=== PATIENT | female | born 2000 | race African-American/Black ===

== ENCOUNTER 2020-12-20 20:22 | Observation (INO) | payer OTHER, SELFPAY ==
[2020-12-20 21:20] LABS: Add Urine Microscopic? YES; Appearance Urine Cloudy (Clear); Bacteria Urine Trace /hpf; Bilirubin Urine Negative (Negative); Blood Urine Negative (Negative); Color Urine Yellow (Yellow); Glucose Urine UA 3+ mg/dL (Negative); Ketones Urine Negative (Negative); Leukocyte Esterase Ur 3+ LEU/UL (Negative); Nitrate Urine Negative (Negative); Protein Urine Negative (Negative); Specific Grav Ur 1.009 (1.001-1.035); Squamous Epithelial Cell Urine Rare /hpf (Few); Urobilinogen Urine Negative mg/dL (<2.0)
--- NOTE | 2020-12-20 21:33 | PC.NURSE ---
Spoke with Dr. Shook at 2130 to update patient status and give urine lab results along with contraction and fht's. Informed Dr. Shook of 3+ leukocyte and 3+ glucose in urine. Dr. Shook stated that since patient is not prasanth and baby has moderate variability on monitor she is okay for discharge from his standpoint. Dr. Shook stated that she needs to rest as much as possible and possibly get a belt for support to help with the pelvic pressure.
--- NOTE | 2020-12-21 08:36 | P.PNOB_ITS ---
OB - Triage/Final Diagnosis Visit Information Comments/Additional reasons for admission: I have assessed the risk for this patient, Veronika Dailey, and determined that she would benefit from observation care. Evaluation Laboratory results: Laboratory Tests 12/20/20 21:04 Urine Color Yellow Urine Appearance Cloudy H Urine pH 7.0 Ur Specific [place] 1.009 Urine Protein Negative Urine Glucose (UA) 3+ H Urine Ketones Negative Ur Blood (Man) Negative Urine Nitrate Negative Urine Bilirubin Negative Urine Urobilinogen Negative Leukocyte Esterase Rfl 3+ H Ur Squamous Epith Cells Rare Urine Bacteria Trace Final Diagnosis (1) Back pain affecting : Code(s): O99.891 - Other specified diseases and conditions complicating ; M54.9 - Dorsalgia, unspecified Status: Acute
== END 2020-12-20 21:50 | disposition home or self-care (01) ==
PROVIDERS: Admitting Provider Obstetrics & Gynecology; Visit Provider Obstetrics & Gynecology
DX: O99.891 Other specified diseases and conditions complicating pregnancy (principal); M54.9 Dorsalgia, unspecified; Z3A.00 Weeks of gestation of pregnancy not specified
CPT/HCPCS: 81001; G0378; G0379

== ENCOUNTER 2021-02-03 15:43 | Inpatient (IN) | payer OTHER, SELFPAY ==
[2021-02-03] VITALS (8 sets, daily range): BP systolic 112–129; BP diastolic 58–81; PULSE 89–104; TEMP 36.6–36.7
--- NOTE | 2021-02-03 16:30 | LDADM ---
This patient, Veronika Dailey, was admitted to Labor/Delivery/Recovery 108 on 02/03/21 at 15:43. Plans for labor, pain management and were discussed with patient. Patient/family oriented to hospital policies and general routines including ID bracelet, bed and alarms, visiting hours, pain management, procedures, bathroom and other care routines, personal items, smoking policy, room service/diet and guest tray routines, security routines, and visiting hours. Patient/Family are encouraged to report perceived risks to care and to ask questions if they do not understand what they are told or what they should do. See OBIX for further documentation.
[2021-02-03 16:33] LABS: Basophils Percent Auto 0.2 % (0.2-1.2); Eosinophils Absolute Auto 0.1 K/mm3 (0-0.3); Eosinophils Percent Auto 0.6 % (0-4.4); Hematocrit 35.9 % (37.0-47.0); Hemoglobin 11.7 g/dL (12.0-15.0); Immature Granulocyte Absolute 0.03 K/mm3 (0.00-0.031); Immature Granulocyte Percent A 0.3 % (0-0.5); Lymphocytes Absolute Auto 1.45 K/mm3 (0.9-3.2); Lymphocytes Percent Auto 16.4 % (18.3-44.2); Mean Corpuscular HGB Conc 32.6 g/dl (32-36); Mean Corpuscular Volume 82.9 fl (80-100); Monocytes Absolute Auto 0.8 K/mm3 (0.1-0.6); Monocytes Percent Auto 8.5 % (2.6-8.5); Neutrophils Absolute Auto 6.6 K/mm3 (1.3-6.7); Platelet Count Result 131 k/mm3 (150-375); Red Blood Count 4.33 M/mm3 (4.2-5.4); Red Cell Distribution Width 18.1 % (11.5-14.5); White Blood Count 8.9 K/mm3 (4.5-10.0)
[2021-02-03] MEDS: DINOPROSTONE 10 MG VAG INSERT VAGINAL (17:02)
--- NOTE | 2021-02-03 17:18 | P.PNAN_ITS ---
Anes - Eval Pre Procedure Procedure: labor epidural Date/Time: 02/03/21 17:18 Surgeon: camila Pre Op Diagnosis: iol Patient Data Age: 20 Gender: F Height: 1.68 m Weight: Last Vital Signs Pulse 89 02/03/21 17:00 BP 129/76 02/03/21 17:00 Allergies Allergy/AdvReac Type Severity Reaction Status Date / Time No Known Allergies Allergy Verified 01/13/21 14:37 Home Medications Medication Instructions Recorded Confirmed Type cholecalciferol (vitamin D3) 125 mcg PO DAILY 01/13/21 01/13/21 History [Vitamin D3] ferrous sulfate 325 mg PO DAILY 01/13/21 01/13/21 History prenat.vits,lillian,cyj-iyqf-kpfpk 1 tablet PO DAILY 01/13/21 01/13/21 History [ #2] Laboratory Tests 02/03/21 02/03/21 16:21 16:21 WBC 8.9 K/mm3 K/mm3 (4.5-10.0) RBC 4.33 M/mm3 M/mm3 (4.2-5.4) Hgb 11.7 g/dL L g/dL (12.0-15.0) Hct 35.9 % L % (37.0-47.0) MCV 82.9 fl fl (80-100) MCH 27.0 pg pg (26-34) MCHC 32.6 g/dl g/dl (32-36) RDW 18.1 % H % (11.5-14.5) Plt Count 131 k/mm3 L k/mm3 (150-375) MPV TNP Immature Gran % (Auto) 0.3 % % (0-0.5) Neut % (Auto) 74.0 % H % (45.5-73.1) Lymph % (Auto) 16.4 % L % (18.3-44.2) Rowan % (Auto) 8.5 % % (2.6-8.5) Eos % (Auto) 0.6 % % (0-4.4) Baso % (Auto) 0.2 % % (0.2-1.2) Lymph # (Auto) 1.45 K/mm3 K/mm3 (0.9-3.2) Rowan # (Auto) 0.8 K/mm3 H K/mm3 (0.1-0.6) Eos # (Auto) 0.1 K/mm3 K/mm3 (0-0.3) Baso # (Auto) 0.0 K/mm3 K/mm3 (0.0-0.1) Abs Immat Gran (auto) 0.03 K/mm3 K/mm3 (0.00-0.031) Absolute Neuts (auto) 6.6 K/mm3 K/mm3 (1.3-6.7) Absolute Nucleated RBC 0.0 K/mm3 K/mm3 (0.0-0.012) Nucleated RBC % 0.0 % % (0.0-0.2) % Immature Plt Fraction 15.0 % H % (0.9-11.2) RPR Pending Patient hx anesthesia problems: none Family hx anesthesia problems: none Results Review: All pre-operative results and documents have been reviewed as part of the pre-operative evaluation. [facility] Family History Family History (Updated 01/13/21 @ 14:40 by Linda Soriano RN) Mother Diabetes mellitus Hypertension Grandparent Hypertension Social History Social History Smoking status: Never smoker Substance use: never Spiritual care concerns: No Exam Day of Procedure 02/03/21 17:18
--- NOTE | 2021-02-03 18:21 | PM.IMHP ---
H&P: HPI History of Present Illness Date/Time: 02/03/21 18:13 Veronika is a 20yo @ 39.0wks (HERMINIO 02/10/21) who presents for elective IOL. She reports good movement. Irregular contractions. No VB or LOF. Her is complicated by: - Benign gestational thrombocytopenia (plts 117 --> 145k) - Mild anemia; on iron daily - Late transfer of care from [place] @ 31wks Chief Complaint: induction of labor Review of Systems Review of Systems: All systems reviewed & are unremarkable except as noted in HPI and below (HPI) PENDING SALE TO [facility] Family History Family History Mother Diabetes mellitus Hypertension Grandparent Hypertension Social History Social History Smoking status: Never smoker Substance use: never Spiritual care concerns: No Meds Home Medications and Allergies Home Medications Medication Instructions Recorded Confirmed Type cholecalciferol (vitamin D3) 125 mcg PO DAILY 01/13/21 01/13/21 History [Vitamin D3] ferrous sulfate 325 mg PO DAILY 01/13/21 01/13/21 History prenat.vits,lillian,ngh-xsdo-yqlhl 1 tablet PO DAILY 01/13/21 01/13/21 History [ #2] Allergies Allergy/AdvReac Type Severity Reaction Status Date / Time No Known Allergies Allergy Verified 01/13/21 14:37 Vital Signs Vital Signs - 24 hr 02/03/21 16:30 02/03/21 16:45 02/03/21 17:00 Pulse Rate 104 H 103 H 89 Blood Pressure 124/70 114/58 L 129/76 02/03/21 17:30 02/03/21 18:00 Pulse Rate 94 89 Blood Pressure 114/70 112/73 Exam Const: General: cooperative, healthy appearing, comfortable and no acute distress Resp: Effort & Inspection: normal respiratory effort Cardio: Rate: regular rate GI: GI Palp: No abdominal tenderness and Yes Soft to palpation : Other: FHT's: 120's/mod gaetano/ +accels/ no decels - cat 1 TOCO: irregular ctx's Cervix: 1.5/thick/high Presentation: cephalic Membranes: intact H&P: Results Labs Labs: Short CBC 02/03/21 Range/Units 16:21 WBC 8.9 (4.5-10.0) K/mm3 Hgb 11.7 L (12.0-15.0) g/dL Hct 35.9 L (37.0-47.0) % Plt Count 131 L (150-375) k/mm3 Assessment and Plan Assessment and plan (1) Encounter for elective induction of labor: Code(s): Z34.90 - Encounter for supervision of normal , unspecified, unspecified trimester Status: Acute (2) Gestational thrombocytopenia: Qualifiers: Trimester: third trimester Qualified Code(s): O99.113 - Other diseases of the blood and blood-forming organs and certain disorders involving the immune mechanism complicating , third trimester; D69.6 - Thrombocytopenia, unspecified Code(s): O99.119 - Other diseases of the blood and blood-forming organs and certain disorders involving the immune mechanism complicating , unspecified trimester; D69.6 - Thrombocytopenia, unspecified Status: Acute (3) : Qualifiers: Weeks of gestation: 39 weeks Qualified Code(s): Z3A.39 - 39 weeks gestation of Code(s): Z34.90 - Encounter for supervision of normal , unspecified, unspecified trimester Status: Acute Additional Plan - Admit to L&D for elective IOL - Cervidil overnight, plan for pitocin/AROM in AM - Continuous monitoring; currently reassuring - Anesthesia consult PRN pain - GBS negative
--- NOTE | 2021-02-03 18:21 | WPDHPUPDATE1 ---
History and Physical Update Update Date/Time: 02/03/21 18:21 History and Physical has been reviewed, including an updated exam of the patient. There are NO changes in the patient's condition. Risks, benefits, and alternatives have been discussed and questions answered. Patient agrees to proceed with procedure.
[2021-02-04] VITALS (179 sets, daily range): BP systolic 85–196; BP diastolic 56–127; PULSE 25–157; RESP 18; TEMP 36.2–36.6; O2SAT 77–100
[2021-02-04] MEDS: LACTATED RINGERS 1,000 ML 125 ML IV CONT ×3 (06:08→16:52)
[2021-02-04] MEDS: OXYTOCIN 30 UNITS/NS 500 ML 30 UNITS/500 ML BAG 6 UNITS IV CONT (06:08)
[2021-02-04] MEDS: fentaNYL CITRATE INJ (*CRX) 100 MCG/2 ML VIAL IV PUSH (07:34)
--- NOTE | 2021-02-04 07:37 | PM.OBPNLAB ---
Pain Control Date/time seen: 02/04/21 07:37 Pain control: narcotic analgesia Pelvic Exam Dilation (cm): 2 Effacement (%): 50 station: -2 Amniotic membrane status: Ruptured (AROM, clear 0735) Contractions Monitor mode: External Contraction frequency: 2 Contraction pattern: Regular Status status: Category l Assessment and Plan Pitocin rate (mU/min): 8 Assessment: induction ongoing Plan: continuous present management Comments: - plan for epidural
[2021-02-04 08:20] LABS: Rapid Plasma Reagin Non-Reactive (NonReactive)
--- NOTE | 2021-02-04 13:34 | PM.OBPNLAB ---
Pain Control Date/time seen: 02/04/21 13:34 Pain control: epidural Pelvic Exam Dilation (cm): 4 Effacement (%): 80 station: -2 Amniotic membrane status: Ruptured (AROM, clear 0735) Contractions Monitor mode: Internal Contraction frequency: 2 Contraction pattern: Regular Contraction intensity: Moderate Status status: Category l Assessment and Plan Pitocin rate (mU/min): 32 Assessment: induction ongoing Plan: continuous present management
[2021-02-04] MEDS: ONDANSETRON INJ 4 MG/2 ML VIAL IV PUSH (14:10)
[2021-02-04] MEDS: miSOPROStol 200 MCG TABLET 800 MCG (18:08)
--- NOTE | 2021-02-04 18:30 | PM.OBPRVD ---
OB - Delivery Note Procedure Delivery date: 02/04/21 events: Labor Induction Induction method: per cervidil protocol Delivery augmentation: rupture of membranes and pitocin Delivery monitor: external FHT and internal uterine Route of delivery: Laceration Description: Perineal - 1st Degree Delivery repair: vicryl Specimen: No Quantitative Blood Loss (ml): 450 Anesthesia type: Epidural Disposition: floor [place] Baby Date of : 02/04/21 Time of : 18:02 Weeks of gestation at delivery: 39 (.1) gender: Male Weight (pounds): 7 Weight (ounces): 0 presentation: vertex position: Right Occiput Anterior Placenta delivery description: Expressed cord vessel description: 3 Vessels and Delayed Cord Clamping score one minute: 9 score five minutes: 9 Narrative: Veronika progressed to complete dilation with strong desire to push. She pushed with good maternal effort for approximately 30 minutes. She delivered the head over intact perineum. No nuchal cord was palpated. She easily delivered the 's shoulders and body without complications. The was immediately placed skin to skin and had a good cry. Delayed cord clamping was performed. The umbilical cord was then clamped and cut. With Pitocin running and gentle downward traction on the cord, the placenta delivered without complications. Brisk bleeding was then noted and slight uterine atony was palpated. Bimanual massage was performed, and tone returned to normal. Patient was examined and a small first-degree perineal laceration was noted to be bleeding. Local anesthesia was used as the patient was feeling pain. The laceration was repaired using 2-0 Vicryl in a running fashion. Brisk bleeding was once again noted with uterine atony. Bimanual massage was once again performed with uterine sweep and a small piece of membranes was removed. Misoprostol 800 mcg was placed rectally. Good uterine tone with minimal bleeding was then noted. Sponge, lap, instrument, and needle counts were correct at the end of the procedure. Mom and baby were left body in the birthing suite in stable condition.
[2021-02-04] MEDS: OXYTOCIN 30 UNITS/NS 500 ML 30 UNITS/500 ML BAG 125 UNITS IV CONT (18:31)
[2021-02-04] MEDS: IBUPROFEN 600 MG TABLET PO (18:57)
[2021-02-04] MEDS: WITCH HAZEL 40 PADS 1 PAD TOPICAL (18:57)
[2021-02-04] MEDS: BENZOCAINE 20% AER SPR (*SP) 56 GM CAN 1 SPRAY TOPICAL (18:57)
--- NOTE | 2021-02-04 21:21 | OBPPTRN ---
Patient transferred to post room #290 via wheelchair. Support person present. Oriented to unit, room, information board, rooming in, admission packet and security measures. Patient verbalizes understanding.
[2021-02-04] MEDS: ACETAMINOPHEN 325 MG TABLET 650 MG PO (21:44)
[2021-02-05] VITALS (8 sets, daily range): BP systolic 111–128; BP diastolic 61–77; PULSE 72–100; RESP 16–18; TEMP 36.3–37; O2SAT 98–100
[2021-02-05] MEDS: IBUPROFEN 600 MG TABLET PO ×3 (00:54→16:00)
[2021-02-05 04:51] LABS: Hematocrit 33.4 % (37.0-47.0); Hemoglobin 10.8 g/dL (12.0-15.0)
--- NOTE | 2021-02-05 09:51 | WPDANLDPN2 ---
Anes-Prog Note L&D Date/Time: 02/05/21 09:51 Comfortable throughout: labor and delivery Neuraxial method: epidural Neuro status: Neuro function grossly intact. Cardiovascular status: normal Respiratory status: normal Airway patency: baseline Mental status: baseline Post-Op hydration status: normal Vital Signs: Last Vital Signs Temp 36.4 C L 02/05/21 04:15 Pulse 79 02/05/21 04:15 Resp 18 02/05/21 04:15 BP 113/61 02/05/21 04:15 Pulse Ox 99 02/05/21 04:15 Pain score (VAS): 0 I/O: Intake & Output 02/04/21 02/05/21 02/05/21 23:59 07:59 15:59 Output Total 508 Balance -508 Post-procedural complaints: none Patient feedback: Patient satisfied with anesthetic care.
[2021-02-05] MEDS: WITCH HAZEL 40 PADS 1 PAD TOPICAL (09:58)
[2021-02-05] MEDS: DOCUSATE SODIUM 100 MG CAPSULE PO (09:59)
[2021-02-05] MEDS: MULTIVIT/MIN/PREN/FOL AC/IRON TABLET 1 TAB PO (09:59)
--- NOTE | 2021-02-05 12:56 | PM.OBPNVD ---
OB - PN: Subj Subjective Date/time seen: 02/05/21 07:56 Veronika reports doing well today. She reports her pain is controlled with PO pain meds. 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 She has ambulated, voided, and tolerated regular diet. She is bottle feeding. She would like to go home tomorrow. She would like her son circumcised. She denies fever, chills, CP, SOB, ADAN, vision changes, N/V, dizziness or palpations. OB - PN: Obj Data Labs CBC & Chem 7: 02/05/21 04:07 Labs: Laboratory Results - last 24 hr 02/05/21 04:07 Hgb 10.8 L Hct 33.4 L OB - PN A/P Assessment and Plan (1) Normal vaginal delivery of first : Code(s): O80 - Encounter for full-term uncomplicated delivery Status: Acute Plan day: 1 Plan: routine care and discharge home (Tomorrow) Comments: - f/u in 4wks - pelvic rest, take meds as prescribed - ER return precautions: fever, bleeding, htn, n/v/abd pain Time Spent With Patient Time: Total time spent is greater than 50% in coordination of care (as documented) at patient's floor/unit and/or counseling patient: Review of Systems Review of Systems: All systems reviewed & are unremarkable except as noted in HPI and below (HPI) Exam Const: General: cooperative, healthy appearing, comfortable and no acute distress Resp: Effort & Inspection: normal respiratory effort Auscultation: clear to auscultation bilaterally Cardio: Rate: regular rate GI: Inspection: non-distended GI Palp: No abdominal tenderness and Yes Soft to palpation Auscultation: normal bowel sounds : Other: fundus firm Skin: General skin exam: normal color Neuro: General: patient oriented x3 Extrem: General: normal to inspection Psych: Appearance: grossly normal Affect: normal affect Attitude: cooperative
[2021-02-05] MEDS: ACETAMINOPHEN 325 MG TABLET 650 MG PO (18:48)
[2021-02-06] MEDS: ACETAMINOPHEN 325 MG TABLET 650 MG PO (04:25)
[2021-02-06] MEDS: IBUPROFEN 600 MG TABLET PO ×2 (04:25→13:42)
[2021-02-06 07:50] VITALS: BP 129/76; PULSE 55; RESP 16; TEMP 36.5; O2SAT 100
[2021-02-06 09:30] VITALS: PULSE 55; RESP 16; O2SAT 100
--- NOTE | 2021-02-14 08:45 | PM.OBDSVD ---
DS: Admitting Diagnosis Discharge Date 02/06/21 Admitting Diagnosis induction of labor DS: Discharge Diagnosis Discharge Diagnosis (1) Normal vaginal delivery of first : Code(s): O80 - Encounter for full-term uncomplicated delivery Status: Acute OB - DS: Summary OB Procedures : Ultrasound OB Procedures Intrapartum: Spontaneous Vag Delivery OB Procedures: : None Peripartum Data Delivery Method: Natural Vaginal Laceration Description: Perineal - 1st Degree complications: none 1: Gender: Male Disposition of : home Status at Discharge Functional status at discharge: independent ambulation Overall status at discharge: patient is back to baseline Time Spent with Patient Time attestation: Total time spent providing and/or coordinating discharge services: Exam Const: General: cooperative, healthy appearing, comfortable and no acute distress Resp: Effort & Inspection: normal respiratory effort Auscultation: clear to auscultation bilaterally Cardio: Rate: regular rate GI: Inspection: non-distended GI Palp: No abdominal tenderness and Yes Soft to palpation Auscultation: normal bowel sounds : Other: fundus firm Skin: General skin exam: normal color Neuro: General: patient oriented x3 Extrem: General: normal to inspection Psych: Appearance: grossly normal Affect: normal affect Attitude: cooperative Discharge Plan Discharge Attending physician on discharge: Elke Moon Discharging Clinician: Elke Moon Anticipated Discharge Date/Time: 02/06/21 08:00 Patient Disposition: Home, Self-Care Activity: may shower and pelvic rest Diet: regular Discharge Instructions: Education: Mom and Baby Guide Given to: Mother Follow-Up: Call your delivering provider's office for an appointment to be seen in: 4 Weeks Mom and baby should come to the [facility] for the follow-up appointment. Appointment Date/Time: Saturday, February 06, 2021 at 10:00 am What to expect at your follow-up visit: Blood Pressure Check Physical Assessment Call [phone] if you are unable to keep your appointment time. BREAST CARE: * Wear a snug supportive bra. * For engorgement discomfort: Bottle Feeding: * May apply ice packs EPISIOTOMY/PERINEAL CARE: * Until bleeding stops, use your vijaya bottle after urinating * Change your pad frequently throughout the day * You may take sitz baths several times a day (fill your bathtub with warm water and soak for 20 minutes.) Do NOT bathe in the water * No tub baths until seen by your physician - You may shower ACTIVITY: * Rest as much as possible. * Do not exercise or lift anything heavier than your baby (such as laundry or other children.) * Avoid stairs or driving as much as possible. * Do not put anything into the vagina. No douching, tampons, or sexual activity until seen by physician. NOTIFY PHYSICIAN IF YOU HAVE ANY QUESTIONS OR IF ANY OF THE FOLLOWING SYMPTOMS OCCUR: * If your vaginal area becomes red, swollen, or more painful than what you have experienced in the hospital. * If your vaginal bleeding becomes foul smelling. * If your vaginal bleeding becomes more heavy than a period or if your bleeding changes from pink to bright red. However, you may pass an occasional walnut-sized clot once or twice for the first week . * If you experience a sharp, shooting pain in your calves. * If you discover a hard, reddened area on your breast or if you experience flu-like symptoms. DIET: * Eat regular, well-balanced meals. * Drink plenty of fluids daily. Patient Instructions: Vaginal Delivery (DC) Stand Alone Forms: General Discharge Information Follow-up/Referrals: Elke Moon MD [Physician] - 4 Weeks Discharge Medications: New acetaminophen [Mapap (acetaminophen)] 325 mg Tablet 650 mg PO Q6H PRN (Reason:
== END 2021-02-06 14:20 | disposition home or self-care (01) | DRG 560 ==
LOC: ANHLDR 15:49 → ANHOB2 02-05 09:35 → ANHLDR 02-06 15:43 → ANHOB2 02-06 15:43
PROVIDERS: Admitting Provider Obstetrics & Gynecology; Visit Provider Obstetrics & Gynecology
DX: O99.02 Anemia complicating childbirth (principal); O99.12 Other diseases of the blood and blood-forming organs and certain disorders involving the immune mechanism complicating childbirth; D69.6 Thrombocytopenia, unspecified; O70.0 First degree perineal laceration during delivery; Z3A.39 39 weeks gestation of pregnancy; Z37.0 Single live birth; D64.9 Anemia, unspecified
CPT/HCPCS: 36415; 85014; 85018; 85025; 85055; 86592; 86850; 86900; 86901; A9270; J2405; J2590; J3010; J7120

== ENCOUNTER 2021-08-26 16:28 | Outpatient (CLI) | payer OTHER, SELFPAY ==
[2021-08-26 17:42] LABS: HIV 1/2 Ab P24 Ag Result Negative (Negative)
[2021-08-26 20:39] LABS: Hepatitis B Surface Antigen Negative (Negative); Hepatitis C Virus Antibody Negative (Negative)
[2021-08-27 09:35] LABS: Rapid Plasma Reagin Non-Reactive (NonReactive)
[2021-09-07 13:13] LABS: Herpes Simplex Type 1 DNA PCR Not Detected
[2021-09-07 13:15] LABS: Herpes Simplex Type 2 DNA PCR Not Detected
== END 2021-08-26 16:29 | disposition home or self-care (01) ==
PROVIDERS: Visit Provider Obstetrics & Gynecology
DX: A64 Unspecified sexually transmitted disease (principal)
CPT/HCPCS: 36415; 86592; 86703; 86803; 87340; 87529; G0432

== ENCOUNTER 2022-09-16 14:50 | Outpatient (CLI) | payer BC, MEDICAID, SELFPAY ==
[2022-09-16 17:16] LABS: Hepatitis B Surface Antigen Negative (Negative)
[2022-09-16 17:21] LABS: HAV RESULT Negative (Negative)
[2022-09-16 17:25] LABS: HIV 1/2 Ab P24 Ag Result Negative (Negative)
[2022-09-16 17:34] LABS: Hepatitis C Virus Antibody Negative (Negative)
[2022-09-17 11:22] LABS: Rapid Plasma Reagin Non-Reactive (NonReactive)
== END 2022-09-16 14:51 | disposition home or self-care (01) ==
LOC: ANHLAB 14:52
PROVIDERS: Visit Provider Obstetrics & Gynecology
DX: A64 Unspecified sexually transmitted disease (principal)
CPT/HCPCS: 36415; 86592; 86703; 86709; 86803; 87340; G0432

== ENCOUNTER 2024-07-12 14:15 | Outpatient (CLI) | payer MEDICAID, SELFPAY ==
--- NOTE | 2024-07-12 | ECHO_ITS ---
Patient Info Name: Veronika Dailey Age: 23 years : 2000 Gender: Female Ht: 66 in Wt: 164 lbs BSA: 1.88 m2 HR: 78 bpm BP: 133 / 77 mmHg Heart Rhythm: Sinus Rhythm Technical Quality: Good Exam Date: 07/12/2024 2:34 PM Exam Location: Echo Lab Patient Status: Outpatient Admit Date: 07/12/2024 Staff Ordering Physician: FelicityKosta MD Purse Seining Hand: Nohemi Rendon RDCS Attending Provider: Felicity, Kosta Hood MD Referring Physician: Tomás LAKHANI; Exam Type: CA echo doppler color flow Study Info Indications R01.1 - Cardiac murmur, unspecified Complete two-dimensional, color flow and Doppler transthoracic echocardiogram is performed. Summary 1. Left ventricular chamber dimension is normal. 2. Left ventricular systolic function is normal, estimated at 65-70%. 3. Right ventricular systolic function is normal. 4. No significant valvular disease. Left Ventricle Left ventricular chamber dimension is normal. Left ventricular systolic function is normal, estimated at 65-70%. There is no increased left ventricular wall thickness. Right Ventricle Right ventricular chamber dimension is normal. Right ventricular systolic function is normal. Left Atria Left atrial chamber dimension is normal. Right Atria Right atrial chamber dimension is normal. Atrial Septum Intact interatrial septum visualized by color flow imaging. Aortic Valve The aortic valve is trileaflet. There is no aortic valve stenosis. There is no aortic valve regurgitation. Pulmonic Valve The pulmonic valve is not well visualized. There is trace pulmonic regurgitation. Mitral Valve There is trace mitral valve regurgitation. Tricuspid Valve There is trace tricuspid valve regurgitation. Pericardium/Pleural There is no pericardial effusion. Inferior Vena Cava Normal inferior vena cava with >50% collapse upon inspiration consistent with normal right atrial pressure, 3 mmHg. Aorta The aortic root size at the sinus of Valsalva is normal. Left Ventricular Outflow Tract Name Value Normal LVOT 2D LVOT Diameter 2.0 cm LVOT Doppler LVOT Peak Gradient 6 mmHg LVOT Mean Gradient 2 mmHg LVOT VTI 21 cm LVOT VTI/AV VTI Ratio 0.7 LVOT Stroke Volume 65 ml LVOT CO 4.4 l/min LVOT CI 2.3 l/min/m2 Pulmonic Valve Name Value Normal RVOT Doppler RVOT Peak Gradient 2 mmHg PV Doppler PV Peak Gradient 5 mmHg Mitral Valve Name Value Normal MV Doppler MV Decel [place] 795 cm/s2 MV PHT 36 ms MV Area (PHT) 6.1 cm2 4.0-5.0 MV Diastolic Function MV E Peak Velocity 99 cm/s MV A Peak Velocity 51 cm/s MV E/A 2.0 MV Decel Time 125 ms MV Annular TDI MV E/e' (Septal) 9.4 <=8.0 MV E/e' (Lateral) 5.5 <=8.0 MV E/e' (Average) 7.5 Tricuspid Valve Name Value Normal TV Regurgitation Doppler TR Peak Velocity 215 cm/s TR Peak Gradient 18 mmHg Estimated PAP/RSVP RA Pressure 3 mmHg <=5 PA Systolic Pressure 21 mmHg <36 RV Systolic Pressure 21 mmHg <36 Aorta Name Value Normal Ascending Aorta Ao Root Diameter (MM) 2.6 cm Ao Root Diam Index (MM) 1.4 cm/m2 Aortic Valve Name Value Normal AV Doppler AV Peak Velocity 165 cm/s AV Peak Gradient 11 mmHg AV Mean Gradient 5 mmHg AV VTI 29 cm AV Area (Cont Eq VTI) 2.3 cm2 >=3.0 AV Area (Cont Eq Torey) 2.3 cm2 AV Regurgitation 2D LVOT Area 3.1 cm2 Ventricles Name Value Normal LV Dimensions 2D/MM IVS Diastolic Thickness (2D) 0.8 cm 0.6-1.0 LVID Diastole (2D) 4.1 cm 3.8-5.2 LVIW Diastolic Thickness (2D) 0.8 cm 0.6-0.9 LVID Systole (2D) 2.5 cm 2.2-3.5 LVOT Diameter 2.0 cm LV Mass (2D Cubed) 94.66 g 67.00-162.00 LV Mass Index (2D Cubed) 50 g/m2 43-95 Relative Wall Thickness (2D) 0.39 LV Fractional Shortening/Ejection Fraction 2D/MM LV Fractional Shortening (2D) 39 % 27-45 LV EF (2D Teicholz) 70 % 54-74 LV Diastolic Volume (4C MOD) 74 ml LV EF (4C MOD) 74 % LV Diastolic Volume (2C MOD) 71 ml LV EF (2C MOD) 66 % LV Diastolic Volume (BP MOD) 72 ml 46-106 LV Diastolic Volume Index (BP MOD) 39 ml/m2 29-61 LV Systolic Volume (BP MOD) 21 ml 14-42 LV Systolic Volume Index (BP MOD) 11 ml/m2 8-24 LV EF (BP MOD) 70 % 54-74 LV Diastolic Length (4C) 8.5 cm LV Systolic Length (4C) 6.6 cm LV Stroke Volume (4C MOD) 55 ml Atria Name Value Normal LA Dimensions LA Dimension (MM) 3.6 cm 2.7-3.8 LA Volume (4C A-L) 49 ml LA Volume (BP A-L) 54 ml RA Dimensions RA Area (4C) 11.8 cm2 <=18.0 Report Signatures
--- OUTSIDE RECORDS SUMMARY | 2024-07-12 15:26 | XMS_ITS | Clinical Summary ---
Author Organization [facility] Building [facility] Address [address] [place] [address] Care Team Providers Care Dieing Out Machine Operator Name Role Phone No, Physician Primary Care Provider [phone] Allergies No known active allergies Medications vit 49-hsyh-pxoja-d grande 27mg iron- 800 mcg-250 mg capsule Take by mouth Active cholecalciferol (VITAMIN D-3) 5,000 unit capsule Take one capsule daily with food. 30 capsule 11 08/04/2020 Active Active Problems Problem Noted Date Diagnosed Date Chlamydia infection affecting in first trimester 09/03/2020 Overview (10/28/2020): Boyfriend x 4 years. SUNNI negative in August. Immunizations Immunization Administration Dates Next Due Tdap 11/25/2020 Family History Medical History Relation Name Comments Diabetes Mother Hypertension Mother Diabetes Mother's Sister Relation Name Status Comments Mother Mother's Sister Social History Tobacco Use Types Packs/Day Years Used Date Smoking Tobacco: Never Smokeless Tobacco: Never Comments No Sex and Gender Information Value Date Recorded Sex Assigned at Not on file Legal Sex Female 12:32 AM [employer] Gender Identity Female 08/19/2020 6:18 PM CDT Sexual Orientation Straight 08/19/2020 6: 18 PM CDT Obstetrics History Para Term AB IAB SAB Ectopic Multiple Livin g Live Births 1 Date Outcome GA Total Labor Labor/2nd/3rd Weight Sex Type Anes PTL Erica A1 A5 Name Clin Last Filed Vital Signs Vital Sign Reading Time Taken Comments Blood Pressure 126/82 11/25/2020 9:01 AM CDT Pulse - - Temperature - - Respiratory Rate - - Oxygen Saturation - - Inhaled Oxygen Concentration - - Weight 85.3 kg (188 lb) 11/25/2020 9:01 AM CDT Height 167.6 cm (5' 6 ) 10/28/2020 8:52 AM CDT Body Mass Index 30.34 10/28/2020 8:52 AM CDT Plan of Treatment Not on file Insurance [employer] Care Teams Dieing Out Machine Operator Relationship Specialty Start Date End Date No, Physician PCP - General 06/30/20
--- OUTSIDE RECORDS SUMMARY | 2024-07-12 15:26 | XMS_ITS | Referral Summary ---
Author Organization [facility] Address [address] [place] [address] Care Team Providers Care Territory Account Manager Name Role Phone No, Physician Primary Care Provider [phone] Allergies No known active allergies Medications vit [id number] grande 27mg iron- 800 mcg-250 mg capsule Take by mouth Active cholecalciferol (VITAMIN D-3) 5,000 unit capsule Take one capsule daily with food. 30 capsule 11 08/04/2020 Active Active Problems Problem Noted Date Diagnosed Date Chlamydia infection affecting in first trimester 09/03/2020 Overview (10/28/2020): Boyfriend x 4 years. SUNNI negative in August. Immunizations Immunization Administration Dates Next Due Tdap 11/25/2020 Social History Tobacco Use Types Packs/Day Years Used Date Smoking Tobacco: Never Smokeless Tobacco: Never Comments No Sex and Gender Information Value Date Recorded Sex Assigned at Not on file Legal Sex Female 12:32 AM [employer] Gender Identity Female 08/19/2020 6:18 PM CDT Sexual Orientation Straight 08/19/2020 6: 18 PM CDT Last Filed Vital Signs Vital Sign Reading [...] of Treatment Not on file Insurance IDPA Socialance OOS Care Teams Territory Account Manager Relationship Specialty Start Date End Date No, Physician PCP - General 06/30/20
--- OUTSIDE RECORDS SUMMARY | 2024-07-12 15:26 | XMS_ITS | Data Portability ---
Author Organization [facility], Main Office Address [address] [place] [address] Assessment No assessment recorded. Plan of Treatment Reminders Order Date Submit Date Provider Last Modified By Organization Details Last Modified Time Details Appointments None recorded. Lab CMP, serum or plasma 2023 024 [facility] (Lab), [address] [place], [address], 4 13:27:22 lipid panel, serum 2023 024 [facility] (Lab), [address] [place], [address], 13:27:25 unlisted lab - CBC study [address] (Lab), [address] [place], [address], 4 09:04:31 CMP, serum or plasma [address] (Lab), [address] [place], [address], 3 11:07:38 lipid panel, serum [address] (Lab), [address] [place], [address], 3 11:07:38 ferritin, serum or plasma [address] (Lab), [address] [place], [address], 3 11:07:37 iron + total iron-bindin g capacity (TIBC), serum [address] (Lab), [address] [place], [address], 3 11:07:38 CBC w/ auto diff [address] (Lab), [address] [place], [address], 3 11:07:38 Referral None recorded. Procedures None recorded. Surgeries None recorded. Imaging US, echocardiog sandi - Order for 04/23/2024. 2023 024 [email or web address] [facility] ([facility]), [address] [place], [address], 5 17:34:37 Medication Orders fluticasone propionate 50 mcg/actuati on nasal spray,suspe nsion 2022 023 [email or web address] [facility] #[id number], [address], [place], [id number], 4 15:06:47 Medrol (Andres) 4 mg tablets in a dose pack 2022 023 [email or web address] [facility] #[id number], [address], [id number], 4 15:06:42 Augmentin 875 mg-125 mg tablet 2022 023 [email or web address] [facility] #[id number], [address] [place], [place], [id number], 10:48:55 Patient TargetsNo targets recorded. Patient Instructions Encounter Date Encounter Id Patient Instructions Last Modified By Organization Details Last Modified Time 04/11/2024 [id number] risk assessment* [email or web address] Not availabl e 04/12/2024 13:19:27 INFLUENZA VACCIN E TD/TDAP Recommended today, patient declined Ordered P atient will get at local pharmacy/health department MAMMOGRAM Recommended today, but patient declined Ordered N o screening indicated at this time/ no family history CERVICAL SCREENING/PELVIC EXAMINATION No screening necessary patient is up to date COLORECTAL SCREENING Recommended today, but patient declined Ordered C olonoscopy declined. Cologuard ordered No screening necessary until age 45 DEPRESSION SCREENING Negative BMI Overweight Continue healthy eating & exercise NUTRITION Continue healthy eating & exercise PHYSICAL ACTIVITY Need more activity Recommendation of 10-20 minutes of activity that causes mild breathlessness daily VISION Ordered Recommende d today ALCOHOL USE No alcohol use Occasional/Soc ial Use TOBACCO USE non smoker SEXUALLY ACTIVE Yes, Patient is in monogamous relationship Yes, Safe sex practices, condom use, and other forms of contraceptives that are available were discussed with patient GLUCOSE SCREENING LIPID SCREENING Ordered [email or web address] Not available 04/11/2024 16:43:21 Reason for Referral None Reported. Results Created Date Observation Date Name Description Value Unit Range Abnormal Flag Note LastModifiedBy Organization Detail LastModifiedTime 01/07/20 21 01/06/2021 JEAN-CLAUDE TIN ferritin 10 NG/mL 6.24-1 37 Not Available [facility] (Lab) [address] [place], [address], 01/06/2021 18:07:58 01/07/20 21 01/06/2021 IRON/ TIBC PANEL iron 72 mcg/d L 42-175 Not Available [facility] (Lab) [address] [place], [address], 01/06/2021 17:39:41 01/07/20 21 01/06/2021 IRON/ TIBC PANEL total iron binding capacity 523 mcg/d L 265-47 5 high Not Available [facility] (Lab) [address] [place], [address], 01/06/2021 17:39:41 01/07/20 21 01/06/2021 IRON/ TIBC PANEL % transferrin saturation 14 % 20-55 low Not Available [facility] (Lab) [address] [place], [address], 01/06/2021 17:39:41 01/07/20 21 01/06/2021 IRON/ TIBC PANEL unsaturated iron bind capacity 451 mcg/d L 126-38 2 high Not Available [facility] (Lab) [address] [place], [address], 01/06/2021 17:39:41 01/07/20 21 01/06/2021 CBC W/O DIFFE RENTI AL mean red cell hemoglobin 25.8 pg 27.0-3 3.0 low Not Available [facility] (Lab) [address] [place], [address], 01/06/2021 17:21:12 01/07/20 21 01/06/2021 CBC W/O DIFFE RENTI AL white blood cells 11.4 x10'3 /uL 4.2-10 .8 high Not Available [facility] (Lab) [address] [place], [address], 01/06/2021 17:21:12 01/07/20 21 01/06/2021 CBC W/O DIFFE RENTI AL red blood cells 4.26 x10'6 /uL 3.80-5 .20 Not Available [facility] (Lab) [address] [place], [address], 01/06/2021 17:21:12 01/07/20 21 01/06/2021 CBC W/O DIFFE RENTI AL hemoglobin 11.0 g/dL 12.0-1 5.6 low Not Available [facility] (Lab) [address] [place], [address], 01/06/2021 17:21:12 08/31/20 21 01/06/2021 CBC W/O DIFFE RENTI AL hematocrit 35.0 % 35.7-4 5.7 low Not Available [facility] (Lab) [address] [place], [address], 01/06/2021 17:21:12 01/07/20 21 01/06/2021 CBC W/O DIFFE RENTI AL mean red cell volume 82.2 fL 82.0-9 9.0 Not Available [facility] (Lab) [address] [place], [address], 01/06/2021 17:21:12 01/07/20 21 01/06/2021 CBC W/O DIFFE RENTI AL mean RBC HGB concentratio n 31.4 g/dL 31.0-3 6.0 Not Available [facility] (Lab) [address] [place], [address], 01/06/2021 17:21:12 01/07/20 21 01/06/2021 CBC W/O DIFFE RENTI AL red cell distribution width 19.3 % 11.8-1 5.5 high Not Available [facility] (Lab) [address] [place], [address], 01/06/2021 17:21:12 01/07/20 21 01/06/2021 CBC W/O DIFFE RENTI AL platelets 117 x10'3 /uL 150-40 0 low Not Available [facility] (Lab) [address] [place], [address], 01/06/2021 17:21:12 01/09/20 21 01/10/2021 STREP GP B ZORAIDA+R FLX strep gp B ZORAIDA+rflx negati ve negati ve Cente rs for Disea se Contr ol and Preve ntion (CDC) and Ameri can Congr ess of Obste trici ans and Gynec ologi sts (ACOG ) guide lines for preve ntion of perin atal group B strep tococ lillian (GBS) disea se speci fy co-co llect ion of a vagin al and recta l swab speci men to maxim ize sensi tivit y of GBS detec tion. Per the CDC and ACOG, swabb ing both the lower vagin a and rectu m subst antia lly incre ases the yield of detec tion kelly red with sampl ing the vagin a alone . Penic illin G, ampic illin , or cefaz josefa are indic ated for intra partu m proph ylaxi s of perin atal GBS colon izati on. Refle x susce ptibi lity testi ng shoul d be perfo rmed prior to use of clind amyci n only on GBS isola wilfrido from penic illin -alondra rgic women who are consi dered a high risk for anaph ylaxi s. Treat ment with vanco mycin witho ut addit ional testi ng is warra nted if resis tance to clind amyci n is noted . Not Available [facility] [address] [facility] [place], [address], 01/10/2021 14:10:07 01/20/20 21 01/19/2021 PLATE LET COUNT platelets 145 x10'3 /uL 150-40 0 low Not Available [facility] (Lab) [address] [place], [address], 01/19/2021 17:33:11 06/15/19 24 06/15/2023 IRON/ TIBC PANEL total iron binding capacity 322 mcg/d L 265-47 5 Not Available [facility] (Lab) [address] [place], [address], 06/15/2023 12:34:16 06/15/19 24 06/15/2023 IRON/ TIBC PANEL % transferrin saturation 68 % 20-55 high Not Available [facility] (Lab) [address] [place], [address], 06/15/2023 12:34:16 06/15/19 24 06/15/2023 IRON/ TIBC PANEL unsaturated iron bind capacity 103 mcg/d L 126-38 2 low Not Available [facility] (Lab) [address] [place], [address], 06/15/2023 12:34:16 06/15/19 24 06/15/2023 IRON/ TIBC PANEL iron 219 mcg/d L 42-175 high Not Available [facility] (Lab) [address] [facility] [place], [address], 06/15/2023 12:34:16 06/15/19 24 06/15/2023 CBC/C OMPLE TE BLD COUNT W/DIF F white blood cells 8.3 x10'3 /uL 4.2-10 .8 Not Available [facility] (Lab) [address] [place], [address], 06/15/2023 12:09:27 06/15/19 24 06/15/2023 CBC/C OMPLE TE BLD COUNT W/DIF F red blood cells 4.98 x10'6 /uL 3.80-5 .20 Not Available [facility] (Lab) [address] [place], [address], 06/15/2023 12:09:27 06/15/19 24 06/15/2023 CBC/C OMPLE TE BLD COUNT W/DIF F hemoglobin 13.9 g/dL 12.0-1 5.6 Not Available [facility] (Lab) [address] [place], [address], 06/15/2023 12:09:27 06/15/19 24 06/15/2023 CBC/C OMPLE TE BLD COUNT W/DIF F hematocrit 42.0 % 35.7-4 5.7 Not Available [facility] (Lab) [address] [place], [address], 06/15/2023 12:09:27 06/15/19 24 06/15/2023 CBC/C OMPLE TE BLD COUNT W/DIF F mean red cell volume 84.3 fL 82.0-9 9.0 Not Available [facility] (Lab) [address] [place], [address], 06/15/2023 12:09:27 06/15/19 24 06/15/2023 CBC/C OMPLE TE BLD COUNT W/DIF F mean red cell hemoglobin 27.9 pg 27.0-3 3.0 Not Available [facility] (Lab) [address] [place], [address], 06/15/2023 12:09:27 06/15/19 24 06/15/2023 CBC/C OMPLE TE BLD COUNT W/DIF F mean RBC HGB concentratio n 33.1 g/dL 31.0-3 6.0 Not Available [facility] (Lab) [address] [place], [address], 06/15/2023 12:09:27 06/15/19 24 06/15/2023 CBC/C OMPLE TE BLD COUNT W/DIF F red cell distribution width 13.0 % 11.8-1 5.5 Not Available [facility] (Lab) [address] [place], [address], 06/15/2023 12:09:27 06/15/19 24 06/15/2023 CBC/C OMPLE TE BLD COUNT W/DIF F platelets 261 x10'3 /uL 150-40 0 Not Available [facility] (Lab) [address] [place], [address], 06/15/2023 12:09:27 06/15/19 24 06/15/2023 CBC/C OMPLE TE BLD COUNT W/DIF F mean platelet volume 12.0 fL 9.0-12 .4 Not Available [facility] (Lab) [address] [place], [address], 06/15/2023 12:09:27 06/15/19 24 06/15/2023 CBC/C OMPLE TE BLD COUNT W/DIF F neutrophils 59.0 % 39.0-7 2.0 Not Available [facility] (Lab) [address] [place], [address], 06/15/2023 12:09:27 06/15/19 24 06/15/2023 CBC/C OMPLE TE BLD COUNT W/DIF F lymphocytes 32.2 % 16.0-4 7.0 Not Available [facility] (Lab) [address] [place], [address], 06/15/2023 12:09:27 06/15/19 24 06/15/2023 CBC/C OMPLE TE BLD COUNT W/DIF F monocytes 7.1 % 5.0-12 .0 Not Available [facility] (Lab) [address] [place], [address], 06/15/2023 12:09:27 06/15/19 24 06/15/2023 CBC/C OMPLE TE BLD COUNT W/DIF F eosinophils 1.1 % 1.0-7. 0 Not Available [facility] (Lab) [address] [place], [address], 06/15/2023 12:09:27 06/15/19 24 06/15/2023 CBC/C OMPLE TE BLD COUNT W/DIF F basophils 0.4 % 0.0-2. 0 Not Available [facility] (Lab) [address] [place], [address], 06/15/2023 12:09:27 06/15/19 24 06/15/2023 CBC/C OMPLE TE BLD COUNT W/DIF F immature granulocytes 0.2 % 0.00-0 .50 Not Available [facility] (Lab) [address] [place], [address], 06/15/2023 12:09:27 06/15/19 24 06/15/2023 CBC/C OMPLE TE BLD COUNT W/DIF F neutrophils, absolute count 4.88 x10'3 /uL 1.5-8. 0 Not Available [facility] (Lab) [address] [place], [address], 06/15/2023 12:09:27 06/15/19 24 06/15/2023 CBC/C OMPLE TE BLD COUNT W/DIF F lymphocytes, absolute count 2.67 x10'3 /uL 1.07-3 .43 Not Available [facility] (Lab) [address] [place], [address], 06/15/2023 12:09:27 06/15/19 24 06/15/2023 CBC/C OMPLE TE BLD COUNT W/DIF F monocytes, absolute count 0.59 x10'3 /uL 0.29-0 .99 Not Available [facility] (Lab) [address] [place], [address], 06/15/2023 12:09:27 06/15/19 24 06/15/2023 CBC/C OMPLE TE BLD COUNT W/DIF F eosinophils, absolute count 0.09 x10'3 /uL 0.02-0 .53 Not Available [facility] (Lab) [address] [place], [address], 06/15/2023 12:09:27 06/15/19 24 06/15/2023 CBC/C OMPLE TE BLD COUNT W/DIF F basophils, absolute count 0.03 x10'3 /uL 0.01-0 .08 Not Available [facility] (Lab) [address] [place], [address], 06/15/2023 12:09:27 06/15/19 24 06/15/2023 CBC/C OMPLE TE BLD COUNT W/DIF F immature granulocytes ,absolute 0.02 x10'3 /uL 0.00-0 .05 Not Available [facility] (Lab) [address] [place], [address], 06/15/2023 12:09:27 06/15/19 24 06/15/2023 CBC/C OMPLE TE BLD COUNT W/DIF F nucleated red blood cells 0.0 % -0 Not Available [facility] (Lab) [address] [place], [address], 06/15/2023 12:09:27 06/15/19 24 06/15/2023 CBC/C OMPLE TE BLD COUNT W/DIF F NRBC# 0.00 x10'3 /uL Not Available [facility] (Lab) [address] [place], [address], 06/15/2023 12:09:27 06/15/19 24 06/15/2023 COMPR EHENS NILSA METAB OLIC PANEL sodium 139 mmol/ L 137-14 5 Not Available [facility] (Lab) [address] [place], [address], 06/15/2023 12:30:55 06/15/19 24 06/15/2023 COMPR EHENS NILSA METAB OLIC PANEL potassium 3.9 mmol/ L 3.5-5. 1 Not Available [facility] (Lab) [address] [place], [address], 06/15/2023 12:30:55 06/15/19 24 06/15/2023 COMPR EHENS NILSA METAB OLIC PANEL chloride 107 mmol/ L 98-107 Not Available [facility] (Lab) [address] [place], [address], 06/15/2023 12:30:55 06/15/19 24 06/15/2023 COMPR EHENS NILSA METAB OLIC PANEL carbon dioxide 23 mmol/ L 22-30 Not Available [facility] (Lab) [address] [place], [address], 06/15/2023 12:30:55 06/15/19 24 06/15/2023 COMPR EHENS NILSA METAB OLIC PANEL anion gap 12.9 mmol/ L 14-22 low Not Available [facility] (Lab) [address] [place], [address], 06/15/2023 12:30:55 06/15/19 24 06/15/2023 COMPR EHENS NILSA METAB OLIC PANEL glucose 85 mg/dL 70-99 Not Available [facility] (Lab) [address] [place], [address], 06/15/2023 12:30:55 06/15/19 24 06/15/2023 COMPR EHENS NILSA METAB OLIC PANEL BUN 5 mg/dL 8-19 low Not Available [facility] (Lab) [address] [place], [address], 06/15/2023 12:30:55 06/15/19 24 06/15/2023 COMPR EHENS NILSA METAB OLIC PANEL creatinine 0.72 mg/dL 0.66-1 .25 Not Available [facility] (Lab) [address] [place], [address], 06/15/2023 12:30:55 06/15/19 24 06/15/2023 COMPR EHENS NILSA METAB OLIC PANEL GFR >60 Refer ence Range : [place] ge GFR Healt hy Adult : >60 mL/mi n/1.7 3 m2 Chron ic Kidne y Disea se: 15-60 mL/mi n/1.7 3 m2 Kidne y Failu re: <15/m L/min /1.73 m2 www.n iddk. nih.g ov The MDRD study equat ion has not been valid ated in child elijah <18 years of age; pregn ant women ; the elder ly >85 years of age; or in some racia l or ethni c subgr oups, such as Hispa nics. Outsi de the valid ated deysi eters , estim ated GFR is less accur ate, requi ring clini lillian judgm ent on a case- by-ca se basis . Clini lillian inter preta tion for other races and ages must be made by the clini bean. The MDRD study equat ion has not been valid ated for the evalu ation of serum creat inine relat ed to nutri last l statu s or medic ation usage . For perso ns <18 years of age, a pedia tric GFR calcu lator is avail able on the [facility] websi te: https ://liliam w.kid antony.o rg/pr ofess ional s/kdo qi/gf r_cal culat or Not Available [facility] (Lab) [address] [place], [address], 06/15/2023 12:30:55 06/15/19 24 06/15/2023 COMPR EHENS NILSA METAB OLIC PANEL alkaline phosphatase 47 U/L 38-126 Not Available [facility] (Lab) [address] [place], [address], 06/15/2023 12:30:55 06/15/19 24 06/15/2023 COMPR EHENS NILSA METAB OLIC PANEL alanine aminotransfe rase 22 U/L 0-35 Not Available [facility] (Lab) [address] [place], [address], 06/15/2023 12:30:55 06/15/19 24 06/15/2023 COMPR EHENS NILSA METAB OLIC PANEL aspartate aminotransfe rase 29 U/L 15-37 Not Available [facility] (Lab) [address] [place], [address], 06/15/2023 12:30:55 06/15/19 24 06/15/2023 COMPR EHENS NILSA METAB OLIC PANEL bilirubin, total 1.30 mg/dL 0.20-1 .30 Not Available [facility] (Lab) [address] [place], [address], 06/15/2023 12:30:55 06/15/19 24 06/15/2023 COMPR EHENS NILSA METAB OLIC PANEL calcium 10.1 mg/dL 8.4-10 .2 Not Available [facility] (Lab) [address] [place], [address], 06/15/2023 12:30:55 06/15/19 24 06/15/2023 COMPR EHENS NILSA METAB OLIC PANEL total protein 7.1 g/dL 6.3-8. 2 Not Available [facility] (Lab) [address] [place], [address], 06/15/2023 12:30:55 06/15/19 24 06/15/2023 COMPR EHENS NILSA METAB OLIC PANEL albumin 4.2 g/dL 3.4-5. 0 Not Available [facility] (Lab) [address] [place], [address], 06/15/2023 12:30:55 06/15/19 24 06/15/2023 COMPR EHENS NILSA METAB OLIC PANEL globulin 2.9 g/dL 2.6-4. 2 Not Available [facility] (Lab) [address] [place], [address], 06/15/2023 12:30:55 06/15/19 24 06/15/2023 COMPR EHENS NILSA METAB OLIC PANEL A/G ratio 1.4 ratio 1.0-2. 0 Not Available [facility] (Lab) [address] [place], [address], 06/15/2023 12:30:55 06/15/19 24 06/15/2023 LIPID PANEL cholesterol 112 mg/dL 140-19 9 low NIH KALEE NSUS RECOM MENDA TION FOR MARSHA STERO L: ADULT CHILD LOW RISK: <200 <170 BORDE RLINE : <200- 239 ----- HIGH RISK: >240 >200 Not Available [facility] (Lab) [address] [place], [address], 06/15/2023 12:30:57 06/15/19 24 06/15/2023 LIPID PANEL triglyceride s 92 mg/dL 0-150 NIH KALEE NSUS REPOR T RECOM MENDA TION FOR TRIGL YCERI GHANSHYAM: ADULT CHILD LOW RISK: <150 ----- BODER LINE: 150-1 99 ----- HIGH RISK: >200 ----- Not Available [facility] (Lab) [address] [place], [address], 06/15/2023 12:30:57 06/15/19 24 06/15/2023 LIPID PANEL HDL cholesterol 56 mg/dL 40- Not Available [facility] (Lab) [address] [place], [address], 06/15/2023 12:30:57 06/15/19 24 06/15/2023 LIPID PANEL LDL cholesterol, calculated 38 mg/dL 0-130 NIH KALEE NSUS REPOR T RECOM MENDA TIONS FOR LDL: ADULT CHILD LOW RISK <130 <110 (OPTI MAL LDL) <100 ----- BORDE RLINE : 130-1 59 ----- HIGH RISK: >160 >130 A TRIGL YCERI DE RESUL T >400 INVAL IDATE S THE CALCU LATIO N FOR LDL FRACT IONAT ION - THE LDL RESUL T WILL NOT BE REPOR DAVE. Not Available [facility] (Lab) [address] [place], [address], 06/15/2023 12:30:57 06/15/19 24 06/15/2023 JEAN-CLAUDE TIN ferritin 42 NG/mL 6.24-1 37 Not Available [facility] (Lab) [address] [place], [address], 06/15/2023 12:39:31 05/01/20 24 05/01/2024 CBC W/O DIFFE RENTI AL white blood cells 9.8 x10'3 /uL 4.2-10 .8 Not Available [facility] (Lab) [address] [place], [address], 05/01/2024 13:07:15 05/01/20 24 05/01/2024 CBC W/O DIFFE RENTI AL red blood cells 5.03 x10'6 /uL 3.80-5 .20 Not Available [facility] (Lab) [address] [place], [address], 05/01/2024 13:07:15 05/01/20 24 05/01/2024 CBC W/O DIFFE RENTI AL hemoglobin 13.7 g/dL 12.0-1 5.6 Not Available [facility] (Lab) [address] [place], [address], 05/01/2024 13:07:15 05/01/20 24 05/01/2024 CBC W/O DIFFE RENTI AL hematocrit 41.2 % 35.7-4 5.7 Not Available [facility] (Lab) [address] [place], [address], 05/01/2024 13:07:15 05/01/20 24 05/01/2024 CBC W/O DIFFE RENTI AL mean red cell volume 81.9 fL 82.0-9 9.0 low Not Available [facility] (Lab) [address] [place], [address], 05/01/2024 13:07:15 05/01/20 24 05/01/2024 CBC W/O DIFFE RENTI AL mean red cell hemoglobin 27.2 pg 27.0-3 3.0 Not Available [facility] (Lab) [address] [place], [address], 05/01/2024 13:07:15 05/01/20 24 05/01/2024 CBC W/O DIFFE RENTI AL mean RBC HGB concentratio n 33.3 g/dL 31.0-3 6.0 Not Available [facility] (Lab) [address] [place], [address], 05/01/2024 13:07:15 05/01/20 24 05/01/2024 CBC W/O DIFFE RENTI AL red cell distribution width 13.2 % 11.8-1 5.5 Not Available [facility] (Lab) [address] [place], [address], 05/01/2024 13:07:15 05/01/20 24 05/01/2024 CBC W/O DIFFE RENTI AL platelets 255 x10'3 /uL 150-40 0 Not Available [facility] (Lab) [address] [place], [address], 05/01/2024 13:07:15 05/01/2005/01/2024 CBC W/O DIFFE RENTI AL mean platelet volume 11.5 fL 9.0-12 .4 Not Available [facility] (Lab) [address] [place], [address], 05/01/2024 13:07:15 05/01/20 24 05/01/2024 COMPR EHENS NILSA METAB OLIC PANEL sodium 139 mmol/ L 137-14 5 Not Available [facility] (Lab) [address] [place], [address], 05/01/2024 13:27:21 05/01/20 24 05/01/2024 COMPR EHENS NILSA METAB OLIC PANEL potassium 4.2 mmol/ L 3.5-5. 1 Not Available [facility] (Lab) [address] [place], [address], 05/01/2024 13:27:21 05/01/20 24 05/01/2024 COMPR EHENS NILSA METAB OLIC PANEL chloride 111 mmol/ L 98-107 high Not Available [facility] (Lab) [address] [place], [address], 05/01/2024 13:27:21 05/01/20 24 05/01/2024 COMPR EHENS NILSA METAB OLIC PANEL carbon dioxide 22 mmol/ L 22-30 Not Available [facility] (Lab) [address] [place], [address], 05/01/2024 13:27:21 05/01/20 24 05/01/2024 COMPR EHENS NILSA METAB OLIC PANEL anion gap 10.2 mmol/ L 14-22 low Not Available [facility] (Lab) [address] [place], [address], 05/01/2024 13:27:21 05/01/20 24 05/01/2024 COMPR EHENS NILSA METAB OLIC PANEL glucose 80 mg/dL 70-99 Not Available [facility] (Lab) [address] [place], [address], 05/01/2024 13:27:21 05/01/20 24 05/01/2024 COMPR EHENS NILSA METAB OLIC PANEL BUN 8 mg/dL 8-19 Not Available [facility] (Lab) [address] [place], [address], 05/01/2024 13:27:21 05/01/20 24 05/01/2024 COMPR EHENS NILSA METAB OLIC PANEL creatinine 0.66 mg/dL 0.66-1 .25 Not Available [facility] (Lab) [address] [place], [address], 05/01/2024 13:27:21 05/01/20 24 05/01/2024 COMPR EHENS NILSA METAB OLIC PANEL GFR >60 Refer ence Range : [place] ge GFR Healt hy Adult : >60 mL/mi n/1.7 3 m2 Chron ic Kidne y Disea se: 15-60 mL/mi n/1.7 3 m2 Kidne y Failu re: <15/m L/min /1.73 m2 www.n iddk. nih.g ov The MDRD study equat ion has not been valid ated in child elijah <18 years of age; pregn ant women ; the elder ly >85 years of age; or in some racia l or ethni c subgr oups, such as Hispa nics. Outsi de the valid ated deysi eters , estim ated GFR is less accur ate, requi ring clini lillian judgm ent on a case- by-ca se basis . Clini lillian inter preta tion for other races and ages must be made by the clini bean. The MDRD study equat ion has not been valid ated for the evalu ation of serum creat inine relat ed to nutri last l statu s or medic ation usage . For perso ns <18 years of age, a pedia tric GFR calcu lator is avail able on the [facility] websi te: https :[email or web address] hardy.awilda toro/pr ofess ional s/kdo qi/gf r_cal culat or Not Available [facility] (Lab) [address] [place], [address], 05/01/2024 13:27:21 05/01/20 24 05/01/2024 COMPR EHENS NILSA METAB OLIC PANEL alkaline phosphatase 52 U/L 38-126 Not Available [facility] (Lab) [address] [place], [address], 05/01/2024 13:27:21 05/01/20 24 05/01/2024 COMPR EHENS NILSA METAB OLIC PANEL alanine aminotransfe rase 21 U/L 0-35 Not Available [facility] (Lab) [address] [place], [address], 05/01/2024 13:27:21 05/01/20 24 05/01/2024 COMPR EHENS NILSA METAB OLIC PANEL aspartate aminotransfe rase 26 U/L 15-37 Not Available [facility] (Lab) [address] [place], [address], 05/01/2024 13:27:21 05/01/20 24 05/01/2024 COMPR EHENS NILSA METAB OLIC PANEL bilirubin, total 1.00 mg/dL 0.20-1 .30 Not Available [facility] (Lab) [address] [place], [address], 05/01/2024 13:27:21 05/01/20 24 05/01/2024 COMPR EHENS NILSA METAB OLIC PANEL calcium 9.6 mg/dL 8.4-10 .2 Not Available [facility] (Lab) [address] [place], [address], 05/01/2024 13:27:21 05/01/20 24 05/01/2024 COMPR EHENS NILSA METAB OLIC PANEL total protein 7.3 g/dL 6.3-8. 2 Not Available [facility] (Lab) [address] [place], [address], 05/01/2024 13:27:21 05/01/20 24 05/01/2024 COMPR EHENS NILSA METAB OLIC PANEL albumin 4.4 g/dL 3.4-5. 0 Not Available [facility] [facility] (Lab) [address] [place], [address], 05/01/2024 13:27:21 05/01/20 24 05/01/2024 COMPR EHENS NILSA METAB OLIC PANEL globulin 2.9 g/dL 2.6-4. 2 Not Available [facility] (Lab) [address] [place], [address], 05/01/2024 13:27:21 05/01/20 24 05/01/2024 COMPR EHENS NILSA METAB OLIC PANEL A/G ratio 1.5 ratio 1.0-2. 0 Not Available [facility] (Lab) [address] [place], [address], 05/01/2024 13:27:21 05/01/20 24 05/01/2024 LIPID PANEL cholesterol 116 mg/dL 140-19 9 low NIH KALEE NSUS RECOM MENDA TION FOR MARSHA STERO L: ADULT CHILD LOW RISK: <200 <170 BORDE RLINE : <200- 239 ----- HIGH RISK: >240 >200 Not Available [facility] (Lab) [address] [place], [address], 05/01/2024 13:27:25 05/01/20 24 05/01/2024 LIPID PANEL triglyceride s 70 mg/dL 0-150 NIH KALEE NSUS REPOR T RECOM MENDA TION FOR TRIGL YCERI GHANSHYAM: ADULT CHILD LOW RISK: <150 ----- BODER LINE: 150-1 99 ----- HIGH RISK: >200 ----- Not Available [facility] (Lab) [address] [place], [address], 05/01/2024 13:27:25 05/01/20 24 05/01/2024 LIPID PANEL HDL cholesterol 69 mg/dL 40- Not Available [facility] (Lab) [address] [place], [address], 05/01/2024 13:27:25 05/01/20 24 05/01/2024 LIPID PANEL LDL cholesterol, calculated 33 mg/dL 0-130 NIH KALEE NSUS REPOR T RECOM MENDA TIONS FOR LDL: ADULT CHILD LOW RISK <130 <110 (OPTI MAL LDL) <100 ----- BORDE RLINE : 130-1 59 ----- HIGH RISK: >160 >130 A TRIGL YCERI DE RESUL T >400 INVAL IDATE S THE CALCU LATIO N FOR LDL FRACT IONAT ION - THE LDL RESUL T WILL NOT BE REPOR DAVE. Not Available [facility] (Lab) [address] [place], [address], 05/01/2024 13:27:25 Result Notes None recorded. Problems Name Problem SNOMED Code Status Onset Date Resolution Date Notes Provider Name and Address Organization Details Recorded Time 94176929 Completed 202002/05/2021 Not Available [facility] 3 00:43:23 Chronic sinusitis 39194394 Active 2022 Kosta England MD [address], [address], [place], [address] , [facility] 3 16:05:00 Iron deficiency anemia 67173949 Active 2022 Kosta England MD [address], [address], [place], [address] , [facility] 3 16:06:30 Sinus headache 8316883 Active 2023 Priscila Cox MA null, [facility] 4 14:03:34 Cough 62756702 Active 2023 ARTI Finn null, [facility] 4 14:11:12 Acute sinusitis 55041053 Active 2023 ARTI Finn null, [facility] 4 14:11:27 Acid reflux 603671556 Active 2023 Priscila Cox MA null, [facility] 4 17:28:40 Migraine 33195345 Active 2023 Kosta England MD [address], [facility] [address], [place], [address] , [facility] 4 15:47:19 Heart murmur 11565397 Active 2023 Kosta England MD [address], [facility] [address], [place], [address] , [facility] 4 15:52:51 Problem Notes None recorded. Procedures Surgical History Date Name Laterality Status Provider Name and Address Organization Details Recorded Time 4 Advanced Care Planning completed Iqra Darling RN [facility] 04/11/2024 16:39:00 Imaging Results None recorded. Procedure Notes None recorded. Medical Equipment None Reported. Allergies No known drug allergies Medications Name Sig Start Date Stop Date Status Note LastModified by Organization Details LastModified Time amoxicillin 500 mg capsule TAKE 1 CAPSULE BY MOUTH THREE TIMES DAILY FOR 7 DAYS 03/15 completed Not Available Not Available Not Available Augmentin 875 mg-125 mg tablet Take 1 tablet every 12 hours by oral route. 06/16 completed Not Available Not Available Not Available Vitamin B-6 25 mg tablet Take 1 tablet 3 times a day by oral route for 10 days. active Not Available Not Available No t Available ibuprofen 800 mg tablet TAKE 1 TABLET BY MOUTH EVERY 6 TO 8 HOURS NEEDED 04/04 completed Not Available Not Available Not Available fluconazole 150 mg tablet Take 1 tablet by oral route. 04/04 completed Not Available Not Available Not Available metronidazo le 0.75 % (37.5 mg/5 gram) vaginal gel INSERT 1 APPLICATO RFUL VAGINALLY AT BEDTIME FOR 5 NIGHTS 12/12 completed Not Available Not Available Not Available ondansetron HCl 4 mg tablet 12/25 completed Not Available Not Available Not Available prednisone 20 mg tablet TAKE 1 TABLET BY MOUTH TWICE DAILY. DO NOT TAKE NSAIDS WITH MEDICATIO N 04/04 completed Not Available Not Available Not Available clotrimazol e 1 % vaginal cream INSERT 1 APPLICATO RFUL VAGAINALL Y EVERY NIGHT AT BEDTIME X 7 NIGHTS 01/28 completed Not Available Not Available Not Available metronidazo le 500 mg tablet TAKE 1 TABLET BY MOUTH EVERY 12 HOURS FOR 7 DAYS 04/11 completed Not Available Not Available Not Available amoxicillin 500 mg tablet TAKE 1 TABLET BY MOUTH EVERY 8 HOURS FOR 7 DAYS 03/15 completed Not Available Not Available Not Available meclizine 25 mg tablet TAKE 1 TABLET BY MOUTH TWICE DAILY 04/04 completed Not Available Not Available Not Available esomeprazol e magnesium 40 mg capsule,del ayed release TAKE 1 CAPSULE BY MOUTH EVERY DAY FOR 15 DAYS 04/11 completed Not Available Not Available Not Available norethindro ne acetate 1 mg-ethinyl estradiol 20 mcg tablet TAKE 1 TABLET BY MOUTH EVERY DAY 04/04 completed Not Available Not Available Not Available ibuprofen 600 mg tablet 03/17 completed Not Available Not Available Not Available methylpredn isolone 4 mg tablets in a dose pack FOLLOW PACKAGE DIRECTION S 04/11 completed Not Available Not Available Not Available ondansetron 4 mg disintegrat ing tablet Place 1 tablet every 6-8 hours by transling ual route as needed for 10 days. active Not Available Not Available No t Available fluticasone propionate 50 mcg/actuati on nasal spray,suspe nsion SHAKE LIQUID AND USE 2 SPRAYS IN EACH NOSTRIL EVERY DAY 04/11 completed Not Available Not Available Not Available Unisom (doxylamine ) 25 mg tablet Take 0.5 tablets 3 times a day by oral route for 10 days. 12/25 completed Not Available Not Available Not Available cholecalcif presley (vitamin D3) 125 mcg (5,000 unit) capsule TAKE 1 CAPSULE BY MOUTH EVERY DAY 03/17 completed Not Available Not Available Not Available naproxen 500 mg tablet TAKE 1 TABLET BY MOUTH TWICE DAILY WITH FOOD NEEDED active Not Available Not Available No t Available azithromyci n 500 mg tablet TAKE 2 TABLETS BY MOUTH ONCE WITH FOOD FOR 1 DOSE 12/12 completed Not Available Not Available Not Available nitrofurant oin monohydrate /macrocryst als 100 mg capsule TAKE 1 CAPSULE BY MOUTH EVERY 12 HOURS FOR 7 DAYS 01/08 completed Not Available Not Available Not Available iron 65mg daily (OTC) 04/11 completed Not Available Not Available Not Available drospirenon e 3 mg-ethinyl estradiol 0.02 mg tablet TAKE 1 TABLET BY MOUTH DAILY 04/11 completed Not Available Not Available Not Available FeroSul 325 mg (65 mg iron) tablet TAKE 1 TABLET BY MOUTH DAILY WITH BREAKFAST 03/17 completed Not Available Not Available Not Available Jenny 3 mg-0.03 mg tablet TAKE 1 TABLET BY MOUTH DAILY 04/04 completed Not Available Not Available Not Available Multi Vitamin one a day 04/11 completed Not Available Not Available Not Available Junel Fe 24 1 mg-20 mcg (24)/75 mg (4) tablet TAKE 1 TABLET BY MOUTH DAILY 04/04 completed Not Available Not Available Not Available Aurovela Fe 1.5/30 (28) 1.5 mg-30 mcg (21)/75 mg (7) tablet Take 1 tablet every day by oral route for 84 days. 04/04 completed Not Available Not Available Not Available Tri-Lo-Gracie 0.18/0.215/ 0.25 mg-25 mcg tablet TAKE 1 TABLET BY MOUTH DAILY 04/04 completed Not Available Not Available Not Available Volnea (28) 0.15 mg-0.02 mg (21)/0.01 mg (5) tablet TAKE 1 TABLET BY MOUTH DAILY active Not Available Not Available No t Available Vitals Date Recorded Body mass index (BMI) Body height Body weight Systolic blood pressure Diastolic blood pressure Provider Name and Address Organization Details Last Updated DateTime 03/17/2021 29.5 kg/m2 167.64 cm 73411.97 g 118 mm[Hg] 80 mm[Hg] Not Available [facility] 3 00:43:03 Date Recorded Body height Body temperature Body weight Systolic blood pressure Diastolic blood pressure Provider Name and Address Organization Details Last Updated DateTime 1 167.64 cm 98 [degF] 82197.8 435 g 112 mm[Hg] 64 mm[Hg] Not Available [facility] 3 00:43:02 Date Recorded Body weight Systolic blood pressure Diastolic blood pressure Provider Name and Address Organization Details Last Updated DateTime 01/28/2021 90484.4065 g 118 mm[Hg] 80 mm[Hg] Not Available [facility] 07/07/2022 00:43:03 Date Recorded Body weight Body mass index (BMI) Body height Body temperature Heart rate Oxygen saturation Oxygen saturation in Arterial blood by Pulse oximetry Systolic blood pressure Diastolic blood pressure Provider Name and Address Organization Details Last Updated DateTime 3 19037.0 3 g 28.5 kg/m2 168.91 cm 97 [degF] 81 /min 99 % 99 % 130 mm[Hg] 76 mm[Hg] ARTI Hernandez [facility] 3 15:21:53 Date Recorded Body weight Body mass index (BMI) Body height Heart rate Oxygen saturation Oxygen saturation in Arterial blood by Pulse oximetry Systolic blood pressure Diastolic blood pressure Provider Name and Address Organization Details Last Updated DateTime 4 58464.7 4 g 26.2 kg/m2 168.91 cm 92 /min 98 % 98 % 120 mm[Hg] 70 mm[Hg] ARTI Hernandez [employer] 4 15:04:25 Social History Question Answer Notes LastModified by Organizat ion Details LastModified Time Tobacco Smoking Status Never Smoker Not Available [facility] 07/07/2022 00:41:17 Do You Have An Advance Directive? No Information not available 04/04/2023 What Is Your Level Of Alcohol Consumption? Occasional [email or web address] Information not available 04/11/2024 Is Blood Transfusion Acceptable In An Emergency? Yes Information not available 04/04/2023 What Is Your Level Of Caffeine Consumption? Moderate [id number] Information not available 07/07/2022 In The 14 Days Before Symptom Onset, Have You Had Close Contact With A Laboratory-confi rmed COVID-19 While That Case Was Ill? No [id number] Information not available 07/07/2022 In The 14 Days Before Symptom Onset, Have You Had Close Contact With A Person Who Is Under Investigation For COVID-19 While That Person Was Ill? No [id number] Information not available 07/07/2022 Are You Currently Employed? Yes Information not available 04/04/2023 What Type Of Diet Are You Following? REGULAR Information not available 04/04/2023 Which Illicit Or Recreational Drugs Have You Used? None [id number] Information not available 07/07/2022 Do You Or Have You Ever Used E-cigarettes Or Vape? Never Used Electronic Cigarettes [id number] Information not available 07/07/2022 What Is The Highest Grade Or Level Of School You Have Completed Or The Highest Degree You Have Received? 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 No Information not available 04/04/2023 Do You Use Insect Repellent Routinely? No Information not available 04/04/2023 Where Do You Live? Apartment Information not available 04/04/2023 What Was The Date Of Your Most Recent Tobacco Screening? 04/11/2024 [email or web address] Information not available 04/11/2024 How Many Children Do You Have? 1 Information not available 04/04/2023 Have You Ever Been Counseled For Unhealthy Alcohol Use? No [email or web address] Information not available 04/11/2024 Do You Have Any Pets? No Information not available 04/04/2023 What Is Your Relationship Status? Single Information not available 04/04/2023 Do You Use Your Seat Belt Or Car Seat Routinely? Yes Information not available 04/04/2023 Are You Sexually Active? Yes [email or web address] Information not available 04/11/2024 Do You Have Smoke And Carbon Monoxide Detectors In Your Home? Yes Information not available 04/04/2023 Are You Passively Exposed To Smoke? Yes Boyfriend Vapes [email or web address] Information not available 04/11/2024 Are There Any Smokers In Your House? No Information not available 04/04/2023 Do You Feel Stressed (tense, Restless, Nervous, Or Anxious, Or Unable To Sleep At Night)? [id number] Information not available 04/04/2023 Do You Use Any Illicit Or Recreational Drugs? No Information not available 04/04/2023 Do You Use Sunscreen Routinely? No Information not available 04/04/2023 Have You Recently Traveled Abroad? No Information not available 04/04/2023 Do You Have Any Dietary Restrictions? No Information not available 04/04/2023 Sex: Female Functional Status Question Answer Note LastModified by Organizat ion Details LastModified Time What is your exercise level? Occasional [id number] Information not available 07/07/2022 Mental Status None recorded. Family History Relationship Description Onset Age of this Age Resolved Age Notes LastModified by Organization Details LastModified Time Mother Diabetes mellitus [id number] Not available 07/07/2022 00:41:22 Mother Hypertensive disorder [id number] Not available 07/07/2022 00:41:22 Maternal Aunt Diabetes mellitus [id number] Not available 07/07/2022 00:41:22 Maternal Aunt Hypertensive disorder [id number] Not available 07/07/2022 00:41:22 Maternal Grandfather Asbestosis [id number] Not available 07/07/2022 00:41:22 Medical History No medical history recorded. Gynecological History Statement/Question Response Abnormal Pap N Date of Last Pap Smear Current Control Method None Age at Menarche 9 Date of LMP 05/06/2020 Obstetrics History GPAL:G 1 P 1 0 0 1 Type Value Full Term 1 Living 1 Total 1 Immunizations Vaccine Type Date Status Note Provider Nam e and Address Organization Details Recorded Time Influenza, split virus, trivalent, PF 04/11/2024 completed Kosta England MD [address] [place] [address] [address], [place], [address], [facility] 04/11/2024 17:29:01 Past Encounters Encounter ID Performer Location Encounter Start Date Encounter Closed Date Diagnosis/Indication Diagnosis SNOMED-CT Code Diagnosis ICD10 Code Diagnosis Note [id number] _ATHENA_M IGRATION_ DEFAULT_1 _1 , 12/12/2020 00:00:00 12/12/2020 11:31:05 8302 _ATHENA_M IGRATION_ DEFAULT_1 _1 , 12/25/2020 00:00:00 12/25/2020 15:08:00 8304 _ATHENA_M IGRATION_ DEFAULT_1 _1 , 01/08/2021 00:00:00 01/08/2021 12:09:54 8305 _ATHENA_M IGRATION_ DEFAULT_1 _1 , 01/14/2021 00:00:00 01/14/2021 11:36:04 8306 _ATHENA_M IGRATION_ DEFAULT_1 _1 , 01/21/2021 00:00:00 01/21/2021 15:36:52 8307 _ATHENA_M IGRATION_ DEFAULT_1 _1 , 01/28/2021 00:00:00 01/28/2021 10:49:50 8308 _ATHENA_M IGRATION_ DEFAULT_1 _1 , 03/17/2021 00:00:00 03/17/2021 12:50:22 [id number] Kosta England MD [facility] Internal Med [address] [facility] [place] [address] 04/04/2023 15:12:51 04/04/2023 16:14:30 Chronic sinusitis 17605665 J32.9 Iron defic iency anemia 10918740 D50.9 Adult heal th examination 480953047 Z00.00 [id number] Snehal Steele [facility] Internal Med [address] [place] [address] 04/11/2024 14:53:37 04/11/2024 15:54:49 Adult health examination 424637075 Z00.00 Migraine 10547029 G43.90 9 otcubrelvy 50 mg if needed ( has tried in the past and did help) Heart murmur 31938976 R0 1.1 new, needs echo History of anemia 394504 002 Z86.2 improved History of thrombocytopenia 5635739993 9108 Z86.2 improved Depression screening 171 931923 Z13.31 Finding of body mass index 927619496 Z68.26 Administra tion of influenza vaccine 11192127 Z23 Health Concerns Section Related Observation LastModified by Organization Detai ls LastModified Time None Recorded Concern Status LastModified by Organization Details LastModified Time None Recorded Advance Directives Directive N: Payers Encounter Date Sequence Insurance Name Policy Number Policy Cortés Covered Member ID Cortés Member ID Guarantor Name 04/04/2023 1 [place] [id number] Veronika Dailey [id number] Veronikachyna Lowryson 04/11/2024 1 [place] [id number] Veronika Lowryson [id number] Veronika Millerton Notes Date Note Type Note Provider Name and Address Organization Details Recorded Time 04/04/2023 text/html Pt is a 22 y/o h ere today to establish care. C/o Frontal headaches and nasal congestion X 1 months. Has been using nasal sprays. post nasal drainage. Also has some chest discomfort when getting up from a laying down position. Does not happen all the time Has a history of anemia while she was 2 yrs ago and still takes an OTC Iron 65mg daily Kosta England MD [address] [place] [address] Josiane, [facility] [address], [place], [address], [place] [facility] 04/04/2023 16:13:20 04/11/2024 text/html Pt is here today for her yearly examMigraines Headaches- getting migraines 1 week before her menstrual cycle. Has a history of iron def anemia while she was 2 yrs ago. improved, not taking iron pills any more Thrombocytopenia- happened during , improved. labs were good in 07/02 [facility] 04/19/2024 13:04:46 OBGyn Episode No OBEpisode recorded.
== END 2024-07-12 14:16 | disposition home or self-care (01) ==
PROVIDERS: PCP Internal Medicine; Visit Provider Internal Medicine
DX: R01.1 Cardiac murmur, unspecified (principal)
CPT/HCPCS: 93306